=== PATIENT | male | born 1930 | race Caucasian/White ===

== ENCOUNTER 2017-01-05 07:49 | Outpatient (CLI) | payer MEDICARE, OTHER | END 2017-01-05 07:50 | disposition home or self-care (01) | DX: I25.10 Atherosclerotic heart disease of native coronary artery without angina pectoris (principal); D53.9 Nutritional anemia, unspecified; E78.5 Hyperlipidemia, unspecified; I10 Essential (primary) hypertension ==

== ENCOUNTER 2017-10-14 10:24 | Emergency (ER) | payer MEDICARE, OTHER ==
[2017-10-14 11:04] LABS: BASOPHILS # (AUTO) 0.1 10^3/uL (0.0-0.1); BASOPHILS % (AUTO) 0.7 %; EOSINOPHILS # (AUTO) 0.2 10^3/uL (0.0-0.7); EOSINOPHILS % (AUTO) 2.1 %; HGB - HEMOGLOBIN 13.7 g/dL (14.0-18.0); LYMPHOCYTES # (AUTO) 2.2 10^3/uL (1.5-3.5); LYMPHOCYTES % (AUTO) 19.6 %; MEAN CORPUSCULAR HEMOGLOBIN 30.8 pg (27.0-31.0); MEAN CORPUSCULAR HGB CONC 33.3 g/dL (32.0-36.0); MEAN CORPUSCULAR VOLUME 92.4 fL (80.0-94.0); MEAN PLATELET VOLUME 7.8 fL (7.4-11.4); MONOCYTES % (AUTO) 8.8 %; NEUTROPHILS # (AUTO) 7.8 10^3/uL (1.5-6.6); NEUTROPHILS % (AUTO) 68.8 %; PLT - PLATELET COUNT 330 10^3/uL (130-450); RED BLOOD COUNT 4.44 10^6/uL (4.70-6.10); RED CELL DISTRIBUTION WIDTH 13.7 % (12.0-15.0); WHITE BLOOD COUNT 11.3 x10^3/uL (4.8-10.8)
--- NOTE | 2017-10-14 11:10 | ED Physician Documentation ---
PD HPI CHEST PAIN - Stated complaint Stated Complaint: RAPID HEART RATE - Chief complaint Chief Complaint: Cardiac - History obtained from History obtained from: Patient - History of Present Illness Timing - onset: How many hours ago (5-6), Today Timing - onset during: Light activity Timing - duration: Hours (5-6) Timing - details: Abrupt onset, Now resolved (resolved just here in ER after ECG.) Quality: Tightness Location: Left chest Radiation: No: Jaw, Neck Improved by: Rest Associated symptoms: Palpitations. No: Shortness of air, Feeling faint / dizzy Similar symptoms before: Diagnosis (has had episodes of fast heart rate several times that has ceased/converted with time, usually within 1-2 hours. He waited 6 hours today and still felt fast/irregular, so came to ED.) Review of Systems Constitutional: denies: Fever, Chills Nose: denies: Rhinorrhea / runny nose, Congestion Throat: denies: Sore throat Cardiac: reports: Chest pain / pressure, Palpitations. denies: Pedal edema, Calf pain Respiratory: denies: Cough, Wheezing GI: denies: Abdominal Pain, Nausea, Vomiting, Diarrhea Musculoskeletal: denies: Extremity swelling Neurologic: reports: Generalized weakness. denies: Focal weakness, Numbness, Near syncope Endocrine: denies: Weight loss Immunocompromised: denies: Immunocompromised PD PAST MEDICAL HISTORY - Past Medical History Cardiovascular: Hypertension, High cholesterol Respiratory: None Endocrine/Autoimmune: None GI: None : Chronic bladder infection HEENT: Chronic vision loss, Chronic hearing loss Psych: None Musculoskeletal: Osteoarthritis, Other Derm: None - Past Surgical History Past Surgical History: Yes Ortho: Amputation, Other Cardiovascular: Coronary stent HEENT: Cataracts Derm: Skin cancer surgery - Present Medications Home Medications: Ambulatory Orders Medication Instructions Recorded Confirmed Lisinopril 20 mg PO DAILY 01/22/16 10/14/17 Simvastatin 20 mg PO QPM 01/22/16 10/14/17 amLODIPine [Norvasc] 10 mg DAILY 03/02/16 10/14/17 Atenolol/Chlorthalidone 100 mg PO DAILY 10/14/17 10/14/17 [Atenolol-Chlorthalidone 100-25] Metoprolol Succinate 25 mg PO DAILY 10/14/17 10/14/17 diazePAM [Diazepam] 5 mg PO DAILY 10/14/17 10/14/17 hydroCHLOROthiazide 25 mg pe PO DAILY PM 10/14/17 10/14/17 [Hydrochlorothiazide] traMADol [Ultram] 50 mg PO DAILY 10/14/17 10/14/17 - Allergies Allergies/Adverse Reactions: Allergies Allergy/AdvReac Type Severity Reaction Status Date / Time No Known Drug Allergies Allergy Verified 01/22/16 05:34 - Social History Does the pt smoke?: No Smoking Status: Never smoker Does the pt drink ETOH?: Yes Does the pt have substance abuse?: No - Immunizations Immunizations are current?: Yes PD ED PE NORMAL - Vitals Vital signs reviewed: Yes - General General: Alert and oriented X 3, No acute distress, Well developed/nourished - HEENT HEENT: Pharynx benign - Neck Neck: Supple, no meningeal sign, No adenopathy, No JVD - Cardiac Cardiac: RRR (seems converted to NSR by time I got into the room.), No murmur - Respiratory Respiratory: Clear bilaterally - Abdomen Abdomen: Normal bowel sounds, Soft, Non tender, Non distended, No organomegaly - Male Male : Deferred - Rectal Rectal: Deferred - Back Back: No CVA TTP - Derm Derm: Normal color, Warm and dry - Extremities Extremities: Normal ROM s pain, No edema, No calf tenderness / cord - Neuro Neuro: Alert and oriented X 3, No motor deficit, Normal speech Results - Vitals Vitals: Vital Signs - 24 hr 10/14/17 10/14/17 10/14/17 10:36 11:53 12:42 Temperature 36.6 C 36.6 C 36.9 C Heart Rate 139 H 82 68 Respiratory 14 14 19 Rate Blood Pressure 107/84 H 118/72 115/74 O2 Saturation 99 98 97 Oxygen O2 Source Room air - EKG (time done) 10:43 Rate: Rate (enter#) (137) Rhythm: Atrial fibrillation [place]: Normal Ischemia: Non specific changes. No: ST elevation c/w ischemia, ST depression 12:07 Rate: Rate (enter#) (65) Rhythm: NSR [place]: Normal Intervals: Normal [place] QRS: Normal Ischemia: Normal ST segments. No: ST elevation c/w ischemia, ST elevation c/w repol Compare to prior EKG: Changed from prior EKG (now NSR) - Labs Labs: Laboratory Tests 10/14/17 10/14/17 10/14/17 10:45 10:45 10:45 WBC 11.3 H RBC 4.44 L Hgb 13.7 L Hct 41.0 L MCV 92.4 MCH 30.8 MCHC 33.3 RDW 13.7 Plt Count 330 MPV 7.8 Neut # 7.8 H Lymph # 2.2 [place] # 1.0 Eos # 0.2 Baso # 0.1 Absolute Nucleated RBC 0.00 Nucleated RBC % 0.0 Sodium 143 Potassium 4.3 Chloride 105 Carbon Dioxide 21 Anion Gap 17.0 H BUN 19 Creatinine 1.0 Estimated GFR (MDRD) 71 L Glucose 108 H Calcium 9.7 Magnesium Total Bilirubin 0.5 AST 19 ALT 15 Alkaline Phosphatase 76 Troponin I < 0.04 Total Protein 6.8 Albumin 4.0 Globulin 2.8 Albumin/Globulin Ratio 1.4 Lipase 46 10/14/17 10:50 WBC RBC Hgb Hct MCV MCH MCHC RDW Plt Count MPV Neut # Lymph # [place] # Eos # Baso # Absolute Nucleated RBC Nucleated RBC % Sodium Potassium Chloride Carbon Dioxide Anion Gap BUN Creatinine Estimated GFR (MDRD) Glucose Calcium Magnesium 2.2 Total Bilirubin AST ALT Alkaline Phosphatase Troponin I Total Protein Albumin Globulin Albumin/Globulin Ratio Lipase PD MEDICAL DECISION MAKING - ED course Complexity details: reviewed results, re-evaluated patient, considered differential (junctional tach vs. atrial fib 137. It converted without intervention here in ED. ), d/w patient Departure - Departure Disposition: Home, Self Care Clinical Impression: Paroxysmal atrial fibrillation Condition: Stable Record reviewed to determine appropriate education?: Yes Instructions: ED Afib Follow-Up: Leonardo Painting MD [Primary Care Provider] - Comments: Increase your Metoprolol from the current 1/2 tablet daily to a whole tablet daily (25 mg). Check your heart rate and blood pressure twice daily for the next week. If your heart rate is consistently in the 50s or you are feeling lightheaded with lower heart rate, then go back to the 1/2 tablet. If your heart rate is okay but your blood pressure is consistently below 120 systolic, then stay with the metoprolol but stop the Lisinopril. Follow up with your PMD in about a week, call Monday for an appt. For further episodes of the fast heart rate (which looks like atrial fib), see if it stops after a few hours like you have been doing and return to us if it persists. Come to ER sooner if it is associated with chest pain, lightheaded, fainting, trouble breathing, etc. Take a baby aspirin 81 mg daily. Discharge Date/Time: 10/14/17 13:32
[2017-10-14 11:17] LABS: ALBUMIN/GLOBULIN RATIO 1.4 (1.0-2.2); BILIRUBIN,TOTAL 0.5 mg/dL (0.2-1.0); CALCIUM 9.7 mg/dL (8.5-10.3); TOTAL PROTEIN 6.8 g/dL (6.7-8.2)
[2017-10-14] MEDS ORDERED: SODIUM CHLORIDE 0.9% 500 ML IV ONE (11:41)
[2017-10-14] MEDS ORDERED: METOPROLOL 5 MG/5 ML VIAL IVP STA (11:41)
[2017-10-14 12:43] VITALS: BP 115/74
== END 2017-10-14 13:32 | disposition home or self-care (01) ==
LOC: ED 10:24
DX: I48.0 Paroxysmal atrial fibrillation (principal); I10 Essential (primary) hypertension; E78.00 Pure hypercholesterolemia, unspecified; M19.90 Unspecified osteoarthritis, unspecified site
CPT/HCPCS: 36415; 80053; 83690; 83735; 84484; 85025; 93005; 96361; 96374; 99283; 99284

== ENCOUNTER 2018-05-07 08:00 | Outpatient (CLI) | payer MEDICARE, OTHER ==
[2018-05-07 12:06] LABS: BASOPHILS # (AUTO) 0.1 10^3/uL (0.0-0.1); BASOPHILS % (AUTO) 0.7 %; EOSINOPHILS # (AUTO) 0.2 10^3/uL (0.0-0.7); EOSINOPHILS % (AUTO) 2.8 %; HGB - HEMOGLOBIN 13.2 g/dL (14.0-18.0); LYMPHOCYTES # (AUTO) 1.6 10^3/uL (1.5-3.5); LYMPHOCYTES % (AUTO) 18.7 %; MEAN CORPUSCULAR HEMOGLOBIN 31.4 pg (27.0-31.0); MEAN CORPUSCULAR HGB CONC 33.6 g/dL (32.0-36.0); MEAN CORPUSCULAR VOLUME 93.3 fL (80.0-94.0); MEAN PLATELET VOLUME 8.2 fL (7.4-11.4); MONOCYTES # (AUTO) 0.6 10^3/uL (0.0-1.0); MONOCYTES % (AUTO) 7.5 %; NEUTROPHILS % (AUTO) 70.3 %; PLT - PLATELET COUNT 333 10^3/uL (130-450); RED CELL DISTRIBUTION WIDTH 13.8 % (12.0-15.0); WHITE BLOOD COUNT 8.5 x10^3/uL (4.8-10.8)
[2018-05-07 12:24] LABS: ALBUMIN 3.6 g/dL (3.2-5.5); ALBUMIN/GLOBULIN RATIO 1.1 (1.0-2.2); ALKALINE PHOSPHATASE 74 IU/L (42-121); ALT ALANINE AMINOTRANSFERASE 15 IU/L (10-60); AST ASPARTATE AMINOTRANSFERASE 19 IU/L (10-42); BILIRUBIN,TOTAL 0.9 mg/dL (0.2-1.0); BUN - BLOOD UREA NITROGEN 22 mg/dL (6-20); CALCIUM 9.1 mg/dL (8.5-10.3); CARBON DIOXIDE - CO2 29 mmol/L (21-32); CHLORIDE 106 mmol/L (101-111); CHOL/HDL RATIO 4.1 (<5.0); CHOLESTEROL 171 mg/dL; CREATININE 1.1 mg/dL (0.6-1.2); GFR - MDRD 64 (>89); GLUCOSE 107 mg/dL (70-100); HDL CHOLESTEROL 42 mg/dL; LDL CHOLESTEROL,CALCULATED 97 mg/dL; LDL/HDL RATIO 2.3 (<3.6); SODIUM 140 mmol/L (135-145); TOTAL PROTEIN 6.8 g/dL (6.7-8.2); VLDL CHOLESTEROL 32 mg/dL
== END 2018-05-07 08:01 | disposition home or self-care (01) ==
LOC: LAB.S 08:00
PROVIDERS: ATTEND Nurse Practitioner Family
DX: I10 Essential (primary) hypertension (principal); E78.5 Hyperlipidemia, unspecified
CPT/HCPCS: 36415; 80053; 80061; 83721; 84443; 85025

== ENCOUNTER 2018-06-16 02:53 | Emergency (ER) | payer MEDICARE, OTHER ==
--- NOTE | 2018-06-16 03:09 | ED Physician Documentation ---
PD HPI CHEST PAIN - Stated complaint Stated Complaint: CHEST PAIN - Chief complaint Chief Complaint: Cardiac - History obtained from History obtained from: Patient - History of Present Illness Timing - onset: How many hours ago (3) Timing - onset during: Rest Timing - details: Gradual onset, Still present Location: Substernal, Left chest Improved by: Nitro Similar symptoms before: Work up / diagnostics Recently seen: Not recently seen - Additional information Additional information: Patient is a 88 year old male with a history of prior mi in 2000 who is presenting to the emergency department for left sided chest pain. patient states that he woke up tonight with pain in his amputated leg. patient states that he took ibuprofen for it and the leg pain went away but the patient developed left sided chest pain. patient took three nitros but the pain persisted so he came to the emergency department. Review of Systems Ten Systems: 10 systems reviewed and negative Constitutional: denies: Fever, Chills Cardiac: reports: Chest pain / pressure. denies: Palpitations Respiratory: denies: Dyspnea, Cough, Wheezing GI: denies: Nausea, Vomiting PD PAST MEDICAL HISTORY - Past Medical History Cardiovascular: Hypertension, High cholesterol Respiratory: None Endocrine/Autoimmune: None GI: None : Chronic bladder infection HEENT: Chronic vision loss, Chronic hearing loss Psych: None Musculoskeletal: Osteoarthritis, Other Derm: None - Past Surgical History Past Surgical History: Yes Ortho: Amputation, Other Cardiovascular: Coronary stent HEENT: Cataracts Derm: Skin cancer surgery - Present Medications Home Medications: Ambulatory Orders Medication Instructions Recorded Confirmed Lisinopril 20 mg PO DAILY 01/22/16 10/14/17 Simvastatin 20 mg PO QPM 01/22/16 10/14/17 amLODIPine [Norvasc] 10 mg DAILY 03/02/16 10/14/17 Atenolol/Chlorthalidone 100 mg PO DAILY 10/14/17 10/14/17 [Atenolol-Chlorthalidone 100-25] Metoprolol Succinate 25 mg PO DAILY 10/14/17 10/14/17 diazePAM [Diazepam] 5 mg PO DAILY 10/14/17 10/14/17 hydroCHLOROthiazide 25 mg pe PO DAILY PM 10/14/17 10/14/17 [Hydrochlorothiazide] traMADol [Ultram] 50 mg PO DAILY 10/14/17 10/14/17 - Allergies Allergies/Adverse Reactions: Allergies Allergy/AdvReac Type Severity Reaction Status Date / Time No Known Drug Allergies Allergy Verified 06/16/18 03:09 - Social History Does the pt smoke?: No Smoking Status: Never smoker Does the pt drink ETOH?: Yes Does the pt have substance abuse?: No - Immunizations Immunizations are current?: Yes PD ED PE NORMAL - Vitals Vital signs reviewed: Yes - General General: Alert and oriented X 3 - HEENT HEENT: Atraumatic, PERRL - Neck Neck: Supple, no meningeal sign, No JVD - Cardiac Cardiac: RRR - Respiratory Respiratory: No respiratory distress - Abdomen Abdomen: Soft PD ED PE EXPANDED - Extremities Extremities: Right leg (right leg amputation) Results - Vitals Vitals: Vital Signs - 24 hr 06/16/18 06/16/18 03:04 03:18 Temperature 36.5 C Heart Rate 63 Respiratory 18 17 Rate Blood Pressure 106/58 L 100/69 O2 Saturation 97 Oxygen O2 Source Room air - EKG (time done) 0304 Rate: Rate (enter#) (58) Rhythm: Sinus bradycardia Ischemia: ST elevation c/w ischemia, ST depression PD MEDICAL DECISION MAKING - ED course Complexity details: reviewed old records, reviewed results, re-evaluated patient, considered differential, d/w patient, d/w dairy nutrition consultant ED course: Patient was seen and examined at bedside. ekg was performed at 03:04 and showed inferior, posterior DC. Code STEMI was called. patient was treated with aspirin, heparin bolus and heparin drip was started. patient was given a 500ml fluid bolus. Case was discussed with Dr. Read at [facility] who accepted the patient. patient was transferred at 03:25. - Sepsis Event Vital Signs: Vital Signs - 24 hr 06/16/18 06/16/18 03:04 03:18 Temperature 36.5 C Heart Rate 63 Respiratory 18 17 Rate Blood Pressure 106/58 L 100/69 O2 Saturation 97 Oxygen O2 Source Room air Departure - Departure Disposition: 02 Transfer Acute Care Hosp Clinical Impression: ST elevation (STEMI) myocardial infarction Condition: Critical
[2018-06-16] MEDS ORDERED: ASPIRIN CHEW 81 MG TABLET PO STA (03:10)
[2018-06-16] MEDS ORDERED: HEPARIN 5,000 UNIT/ML VIAL IVP STA (03:10)
[2018-06-16] MEDS ORDERED: HEPARIN 25000UNITS/500ML (D5W) 25,000 UNIT/500 ML BAG IV STA (03:10)
[2018-06-16] MEDS ORDERED: HEPARIN 5,000 UNIT/ML VIAL ONE (03:12)
[2018-06-16] MEDS ORDERED: ASPIRIN CHEW 81 MG TABLET ONE (03:13)
[2018-06-16] MEDS ORDERED: HEPARIN 25000UNITS/500ML (D5W) 25,000 UNIT/500 ML BAG IV ONE (03:13)
[2018-06-16 03:22] VITALS: BP 100/69
[2018-06-16 03:23] LABS: BASOPHILS % (AUTO) 0.3 %; EOSINOPHILS % (AUTO) 0.3 %; HGB - HEMOGLOBIN 12.6 g/dL (14.0-18.0); LYMPHOCYTES # (AUTO) 0.4 10^3/uL (1.5-3.5); LYMPHOCYTES % (AUTO) 2.7 %; MEAN CORPUSCULAR HEMOGLOBIN 31.2 pg (27.0-31.0); MEAN CORPUSCULAR HGB CONC 33.3 g/dL (32.0-36.0); MEAN CORPUSCULAR VOLUME 93.7 fL (80.0-94.0); MEAN PLATELET VOLUME 7.6 fL (7.4-11.4); MONOCYTES # (AUTO) 0.1 10^3/uL (0.0-1.0); MONOCYTES % (AUTO) 0.8 %; NEUTROPHILS # (AUTO) 15.1 10^3/uL (1.5-6.6); NEUTROPHILS % (AUTO) 95.9 %; PLT - PLATELET COUNT 291 10^3/uL (130-450); RED BLOOD COUNT 4.04 10^6/uL (4.70-6.10); RED CELL DISTRIBUTION WIDTH 13.5 % (12.0-15.0); WHITE BLOOD COUNT 15.7 x10^3/uL (4.8-10.8)
[2018-06-16 03:29] LABS: PT - PROTHROMBIN TIME 11.5 secs (9.9-12.6)
[2018-06-16 03:39] LABS: ALBUMIN 3.8 g/dL (3.2-5.5); ALBUMIN/GLOBULIN RATIO 1.4 (1.0-2.2); BILIRUBIN,TOTAL 1.1 mg/dL (0.2-1.0); CALCIUM 9.3 mg/dL (8.5-10.3); CREATININE 1.3 mg/dL (0.6-1.2); TOTAL PROTEIN 6.5 g/dL (6.7-8.2)
== END 2018-06-16 03:22 | disposition short-term general hospital (02) ==
LOC: ED 02:53
DX: I21.3 ST elevation (STEMI) myocardial infarction of unspecified site (principal); I45.81 Long QT syndrome; I10 Essential (primary) hypertension; E78.00 Pure hypercholesterolemia, unspecified; Z95.5 Presence of coronary angioplasty implant and graft
CPT/HCPCS: 36415; 80053; 83690; 83880; 84484; 85025; 85610; 85730; 93005; 96374; 99283; A9270; 99284

== ENCOUNTER 2018-06-16 03:30 | Outpatient (CLI) | payer MEDICARE, OTHER | END 2018-06-16 03:31 | disposition short-term general hospital (02) | LOC: EMS 03:30 | PROVIDERS: ATTEND Surgery | DX: R07.9 Chest pain, unspecified (principal); R11.0 Nausea | CPT/HCPCS: A0425; A0427 ==

== ENCOUNTER 2018-06-27 19:40 | Emergency (ER) | payer MEDICARE, OTHER ==
[2018-06-27 19:52] VITALS: BP 145/76
[2018-06-27] MEDS ORDERED: predniSONE 20 MG TABLET PO STA (20:01)
--- NOTE | 2018-06-27 20:04 | ED Physician Documentation ---
History of Present Illness - Stated complaint Stated Complaint: ALLERGIC REACTION/HIVES/SWELLING - Chief complaint Chief Complaint: Allergic Rx - History obtained from History obtained from: Patient, Family - History of Present Illness Timing: How many days ago (2) Pain level max: 0 Pain level now: 0 Improved by: nothing Worsened by: nothing - Additonal information Additional information: Patient is an 88-year-old male who is 10 days status post an acute NE with stent placement. Over the past couple days has noticed urticaria to the left lower extremity spread into the left arm today. His only new medication is Plavix and baclofen. Is not having any dyspnea, chest pain. No wheezing. No stridor. Saw his bioengineer 3 days ago and his primary care provider earlier today. He also states that he is having increased itching in the hands. Does have a history of eczema/psoriasis. Review of Systems Ten Systems: 10 systems reviewed and negative Constitutional: denies: Fever, Chills Nose: denies: Rhinorrhea / runny nose Throat: denies: Sore throat Cardiac: denies: Chest pain / pressure, Palpitations Respiratory: denies: Cough, Hemoptysis GI: denies: Abdominal Pain, Nausea, Vomiting, Diarrhea Musculoskeletal: denies: Neck pain, Back pain Neurologic: denies: Headache PD PAST MEDICAL HISTORY - Past Medical History Past Medical History: Yes Cardiovascular: Hypertension, High cholesterol, [place] Respiratory: None Endocrine/Autoimmune: None GI: None : Chronic bladder infection HEENT: Chronic vision loss, Chronic hearing loss Psych: None Musculoskeletal: Osteoarthritis, Other Derm: None, Eczema, Psoriasis - Past Surgical History Past Surgical History: Yes Ortho: Amputation, Other Cardiovascular: Coronary stent, Cardiac catheterization HEENT: Cataracts Derm: Skin cancer surgery - Present Medications Home Medications: Ambulatory Orders Medication Instructions Recorded Confirmed Lisinopril 2.5 mg PO DAILY 01/22/16 06/16/18 amLODIPine [Norvasc] 5 mg PO DAILY 03/02/16 06/16/18 Metoprolol Succinate 50 mg PO BID 10/14/17 06/16/18 diazePAM [Diazepam] 5 mg PO DAILY 10/14/17 06/16/18 hydroCHLOROthiazide 12.5 mg PO DAILY 10/14/17 06/16/18 [Hydrochlorothiazide] traMADol [Ultram] 50 mg PO Q6HR PRN 10/14/17 06/16/18 Aspirin 81 mg PO 06/27/18 Atorvastatin [Lipitor] 80 mg PO DAILY 06/27/18 06/27/18 Baclofen 06/27/18 06/27/18 Clopidogrel [Plavix] 75 mg PO DAILY 06/27/18 06/27/18 Gabapentin [Neurontin] 100 mg PO 06/27/18 diazePAM [Diazepam] 5 mg PO PRN 06/27/18 predniSONE [Deltasone] 10 mg PO [id number] #42 tab 06/27/18 - Allergies Allergies/Adverse Reactions: Allergies Allergy/AdvReac Type Severity Reaction Status Date / Time No Known Drug Allergies Allergy Verified 06/16/18 03:09 - Social History Does the pt smoke?: No Smoking Status: Never smoker Does the pt drink ETOH?: Yes Does the pt have substance abuse?: No - Immunizations Immunizations are current?: Yes - POLST Patient has POLST: No PD ED PE NORMAL - Vitals Vital signs reviewed: Yes - General General: Alert and oriented X 3, No acute distress - Derm Derm: Warm and dry - Extremities Extremities: Other (urticaria to the posterior aspect of the L leg and inner L upper arm. Slight urticaria to the upper abdomen as well. 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 Unclear etiology. No wheezing or stridor. Lungs are clear to auscultation bilaterally. Will place on steroids and have him follow-up closely with his doctor. Has no chest pain or shortness of breath to suggest recurrent acute coronary syndrome. Patient and family counseled regarding signs and symptoms for which I believe and urgent re- evaluation would be necessary. Patient with good understanding of and agreement to plan and is comfortable going home at this time This document was made in part using voice recognition software. While efforts are made to proofread this document, sound alike and grammatical errors may occur. - Sepsis Event Vital Signs: Vital Signs - 24 hr 06/27/18 19:46 Temperature 36.6 C Heart Rate 96 Respiratory 18 Rate Blood Pressure 145/76 H O2 Saturation 94 Oxygen O2 Source Room air Departure - Departure Disposition: 01 Home, Self Care Clinical Impression: Urticaria Condition: Good Instructions: ED Allergic Reaction General Other Follow-Up: Johanna Han ARNP [Primary Care Provider] - Within 1 week Prescriptions: predniSONE [Deltasone] 10 mg PO [id number] #42 tab Comments: Take the prednisone as directed until gone. Return if you worsen. The etiology of your allergic reaction is unclear
== END 2018-06-27 20:11 | disposition home or self-care (01) ==
LOC: ED 19:40
DX: L50.9 Urticaria, unspecified (principal); I25.2 Old myocardial infarction; I10 Essential (primary) hypertension; E78.00 Pure hypercholesterolemia, unspecified; Z95.5 Presence of coronary angioplasty implant and graft
CPT/HCPCS: 99283; J7512

== ENCOUNTER 2018-08-06 08:21 | Outpatient (CLI) | payer MEDICARE, OTHER ==
[2018-08-06 11:33] LABS: ALKALINE PHOSPHATASE 112 IU/L (42-121); ALT ALANINE AMINOTRANSFERASE 19 IU/L (10-60); AST ASPARTATE AMINOTRANSFERASE 20 IU/L (10-42); BILIRUBIN,TOTAL 0.6 mg/dL (0.2-1.0); CHOLESTEROL 95 mg/dL; HDL CHOLESTEROL 32 mg/dL; LDL CHOLESTEROL,CALCULATED 42 mg/dL; LDL/HDL RATIO 1.3 (<3.6); TOTAL PROTEIN 6.6 g/dL (6.7-8.2); VLDL CHOLESTEROL 21 mg/dL
[2018-08-06 11:48] LABS: BILIRUBIN,DIRECT < 0.1 mg/dL (0.1-0.5)
== END 2018-08-06 08:22 | disposition home or self-care (01) ==
LOC: LAB.F 08:21
PROVIDERS: ATTEND Nurse Practitioner Family
DX: I21.3 ST elevation (STEMI) myocardial infarction of unspecified site (principal)
CPT/HCPCS: 36415; 80061; 80076; 83721

== ENCOUNTER 2019-02-07 08:00 | Outpatient (CLI) | payer MEDICARE, OTHER ==
[2019-02-07 17:57] LABS: MUDS CUTOFF CONCENTRATIONS CUTOFF CONC BELOW:
[2019-02-07 18:45] LABS: AMPHETAMINE SCREEN,URINE NEGATIVE (NEGATIVE); BENZODIAZEPINES SCREEN, URINE NEGATIVE (NEGATIVE); COCAINE SCREEN URINE NEGATIVE (NEGATIVE); METHADONE SCREEN, URINE NEGATIVE (NEGATIVE); METHAMPHETAMINES SCREEN, URINE NEGATIVE (NEGATIVE); OPIATE SCREEN, URINE NEGATIVE (NEGATIVE); OXYCODONE SCREEN, URINE NEGATIVE (NEGATIVE); PROPOXYPHENE SCREEN, URINE NEGATIVE (NEGATIVE); TRICYCLIC ANTIDEPRESSANT,URINE NEGATIVE (NEGATIVE)
== END 2019-02-07 23:59 | disposition home or self-care (01) ==
LOC: LAB.R 08:00
PROVIDERS: ATTEND Nurse Practitioner Family
DX: M25.511 Pain in right shoulder (principal); Z89.611 Acquired absence of right leg above knee
CPT/HCPCS: 80306

== ENCOUNTER 2019-08-12 08:06 | Outpatient (CLI) | payer MEDICARE, OTHER ==
[2019-08-12 10:15] LABS: BASOPHILS # (AUTO) 0.1 10^3/uL (0.0-0.1); BASOPHILS % (AUTO) 0.9 %; EOSINOPHILS # (AUTO) 0.3 10^3/uL (0.0-0.7); EOSINOPHILS % (AUTO) 4.5 %; HGB - HEMOGLOBIN 12.1 g/dL (14.0-18.0); LYMPHOCYTES # (AUTO) 1.5 10^3/uL (1.5-3.5); LYMPHOCYTES % (AUTO) 26.4 %; MEAN CORPUSCULAR HEMOGLOBIN 30.6 pg (27.0-31.0); MEAN CORPUSCULAR HGB CONC 31.5 g/dL (32.0-36.0); MEAN PLATELET VOLUME 10.4 fL (7.4-11.4); MONOCYTES # (AUTO) 0.6 10^3/uL (0.0-1.0); MONOCYTES % (AUTO) 10.1 %; NEUTROPHILS # (AUTO) 3.2 10^3/uL (1.5-6.6); NEUTROPHILS % (AUTO) 57.6 %; PLT - PLATELET COUNT 239 10^3/uL (130-450); RED BLOOD COUNT 3.96 10^6/uL (4.70-6.10); RED CELL DISTRIBUTION WIDTH 13.8 % (12.0-15.0); WHITE BLOOD COUNT 5.6 x10^3/uL (4.8-10.8)
[2019-08-12 10:36] LABS: ALBUMIN 3.8 g/dL (3.2-5.5); ALBUMIN/GLOBULIN RATIO 1.5 (1.0-2.2); ALKALINE PHOSPHATASE 80 IU/L (42-121); ALT ALANINE AMINOTRANSFERASE 19 IU/L (10-60); AST ASPARTATE AMINOTRANSFERASE 17 IU/L (10-42); BILIRUBIN,TOTAL 0.8 mg/dL (0.2-1.0); BUN - BLOOD UREA NITROGEN 22 mg/dL (6-20); CALCIUM 9.2 mg/dL (8.5-10.3); CARBON DIOXIDE - CO2 31 mmol/L (21-32); CHLORIDE 105 mmol/L (101-111); CHOL/HDL RATIO 2.6 (<5.0); CHOLESTEROL 111 mg/dL; GFR - MDRD 71 (>89); GLUCOSE 105 mg/dL (70-100); HDL CHOLESTEROL 42 mg/dL; LDL CHOLESTEROL,CALCULATED 53 mg/dL; LDL/HDL RATIO 1.3 (<3.6); SODIUM 142 mmol/L (135-145); TOTAL PROTEIN 6.4 g/dL (6.7-8.2); VLDL CHOLESTEROL 16 mg/dL
== END 2019-08-12 08:07 | disposition home or self-care (01) ==
LOC: LAB.S 08:06
PROVIDERS: ATTEND Physician Assistant Medical
DX: I10 Essential (primary) hypertension (principal); E78.5 Hyperlipidemia, unspecified
CPT/HCPCS: 36415; 80053; 80061; 83721; 85025

== ENCOUNTER 2020-05-27 16:27 | Emergency (ER) | payer MEDICARE, OTHER ==
[2020-05-27 16:39] VITALS: BP 125/73
[2020-05-27 17:02] LABS: BASOPHILS % (AUTO) 0.5 %; EOSINOPHILS # (AUTO) 0.3 10^3/uL (0.0-0.7); EOSINOPHILS % (AUTO) 3.3 %; HGB - HEMOGLOBIN 12.3 g/dL (14.0-18.0); LYMPHOCYTES # (AUTO) 1.8 10^3/uL (1.5-3.5); LYMPHOCYTES % (AUTO) 23.5 %; MEAN CORPUSCULAR HEMOGLOBIN 31.1 pg (27.0-31.0); MEAN CORPUSCULAR HGB CONC 31.9 g/dL (32.0-36.0); MEAN CORPUSCULAR VOLUME 97.5 fL (80.0-94.0); MEAN PLATELET VOLUME 9.5 fL (7.4-11.4); MONOCYTES # (AUTO) 0.8 10^3/uL (0.0-1.0); MONOCYTES % (AUTO) 10.1 %; NEUTROPHILS # (AUTO) 4.7 10^3/uL (1.5-6.6); NEUTROPHILS % (AUTO) 62.1 %; PLT - PLATELET COUNT 275 10^3/uL (130-450); RED BLOOD COUNT 3.96 10^6/uL (4.70-6.10); RED CELL DISTRIBUTION WIDTH 13.5 % (12.0-15.0); WHITE BLOOD COUNT 7.6 x10^3/uL (4.8-10.8)
[2020-05-27 17:17] LABS: ALBUMIN 3.8 g/dL (3.2-5.5); ALBUMIN/GLOBULIN RATIO 1.5 (1.0-2.2); BILIRUBIN,TOTAL 0.6 mg/dL (0.2-1.0); CALCIUM 8.7 mg/dL (8.5-10.3); CREATININE 0.8 mg/dL (0.6-1.2); TOTAL PROTEIN 6.3 g/dL (6.7-8.2)
--- NOTE | 2020-05-27 17:21 | XRAY Report ---
PROCEDURE: Chest 1 View X-Ray INDICATIONS: Chest pain TECHNIQUE: One view of the chest was acquired. COMPARISON: Chest radiographs dated 03/21/2016 FINDINGS: Surgical changes and devices: None. Lungs and pleura: Mild elevation of the left hemidiaphragm appears stable when compared to the prior radiographs. No focal airspace consolidation is seen. There is no significant pleural effusion or pn eumothorax. Mediastinum: Mediastinal contours appear normal. Heart size is normal. At this chronic ossificatio ns are seen in the aorta. Bones and chest wall: No suspicious bony lesions. Overlying soft tissues appear unremarkable. 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 IMPRESSION: No acute cardiopulmonary abnormality. Stable elevation of the left hemidiaphragm. Reviewed by: Gregor Cesar MD on 05/27/2020 5:19 PM PDT Approved by: Gregor Cesar MD on 05/27/2020 5:19 PM PDT Station ID: [id number]
--- NOTE | 2020-05-27 17:23 | ED Physician Documentation ---
History of Present Illness - Stated complaint Stated Complaint: IRREGULAR HEART BEAT - Chief complaint Chief Complaint: Cardiac - Additonal information Additional information: 89-year-old male presents to the emergency department for evaluation of what he feels are missing or skipped beats in his chest. This has been occurring with increasing frequency over the last several weeks. However it was more sustained today. He has not had any fainting episodes. He denies chest pain or shortness of breath with these sensations. no syncope or c/o feeling dizzy or lightheaded. He has had no nausea vomiting or complaints of abdominal pain. He does have a significant cardiovascular history with multiple previous MIs and [address] Past medical history includes hypertension coronary artery disease. Meds: lisinopril, amlodipine, aspirin, Plavix, metoprolol, gabapentin, statin, baclofen Review of Systems Constitutional: denies: Fever, Chills Throat: denies: Oral lesions / sores, Sore throat Cardiac: reports: Palpitations. denies: Chest pain / pressure, Pedal edema, Calf pain Respiratory: denies: Dyspnea, Cough, Hemoptysis, Wheezing GI: denies: Abdominal Pain, Abdominal Swelling, Nausea, Vomiting : denies: Dysuria, Frequency Skin: denies: Rash, Lesions Musculoskeletal: denies: Neck pain, Back pain Neurologic: denies: Generalized weakness, Focal weakness, Numbness, Difficulty speaking, Syncope, Seizure, Confused, Altered mental status, Headache PD PAST MEDICAL HISTORY - Past Medical History Cardiovascular: Hypertension, High cholesterol, [place] Respiratory: None Endocrine/Autoimmune: None GI: None : Chronic bladder infection HEENT: Chronic vision loss, Chronic hearing loss Psych: None Musculoskeletal: Osteoarthritis, Other Derm: None, Eczema, Psoriasis - Past Surgical History Past Surgical History: Yes Ortho: Amputation, Other Cardiovascular: Coronary stent, Cardiac catheterization HEENT: Cataracts Derm: Skin cancer surgery - Present Medications Home Medications: Ambulatory Orders Medication Instructions Recorded Confirmed Lisinopril 2.5 mg PO DAILY 01/22/16 06/16/18 amLODIPine [Norvasc] 5 mg PO DAILY 03/02/16 06/16/18 Metoprolol Succinate 50 mg PO BID 10/14/17 06/16/18 diazePAM [Diazepam] 5 mg PO DAILY 10/14/17 06/16/18 hydroCHLOROthiazide 12.5 mg PO DAILY 10/14/17 06/16/18 [Hydrochlorothiazide] traMADol [Ultram] 50 mg PO Q6HR PRN 10/14/17 06/16/18 Aspirin 81 mg PO 06/27/18 Atorvastatin [Lipitor] 80 mg PO DAILY 06/27/18 06/27/18 Baclofen 06/27/18 06/27/18 Clopidogrel [Plavix] 75 mg PO DAILY 06/27/18 06/27/18 Gabapentin [Neurontin] 100 mg PO 06/27/18 diazePAM [Diazepam] 5 mg PO PRN 06/27/18 predniSONE [Deltasone] 10 mg PO [id number] #42 tab 06/27/18 - Allergies Allergies/Adverse Reactions: Allergies Allergy/AdvReac Type Severity Reaction Status Date / Time No Known Drug Allergies Allergy Verified 05/27/20 16:38 - Social History Does the pt smoke?: No Smoking Status: Never smoker Does the pt drink ETOH?: Yes Does the pt have substance abuse?: No - Immunizations Immunizations are current?: Yes - POLST Patient has POLST: No PD ED PE NORMAL - General General: Alert and oriented X 3, No acute distress, Well developed/nourished - HEENT HEENT: PERRL - Neck Neck: Supple, no meningeal sign, No adenopathy - Cardiac Cardiac: RRR, Strong equal pulses. No: No murmur - Respiratory Respiratory: No respiratory distress, Clear bilaterally - Abdomen Abdomen: Normal bowel sounds, Soft - Derm Derm: Normal color, Warm and dry, No rash - Extremities Extremities: No deformity - Neuro Neuro: Alert and oriented X 3, commercial counsel 2-12 intact, No motor deficit, No sensory deficit Eye Opening: Spontaneous Motor: Obeys Commands Verbal: Oriented GCS Score: 15 Results - Vitals Vitals: Vital Signs - 24 hr 05/27/20 16:29 Temperature 36.8 C Heart Rate 71 Respiratory 18 Rate Blood Pressure 125/73 O2 Saturation 97 Oxygen O2 Source Room air - Labs Labs: Laboratory Tests 05/27/20 05/27/20 05/27/20 16:55 16:55 16:55 WBC 7.6 RBC 3.96 L Hgb 12.3 L Hct 38.6 L MCV 97.5 H MCH 31.1 H MCHC 31.9 L RDW 13.5 Plt Count 275 MPV 9.5 Neut # (Auto) 4.7 Lymph # (Auto) 1.8 [place] # (Auto) 0.8 Eos # (Auto) 0.3 Baso # (Auto) 0.0 Absolute Nucleated RBC 0.00 Nucleated RBC % 0.0 Sodium 140 Potassium 4.0 Chloride 106 Carbon Dioxide 28 Anion Gap 6.0 BUN 19 Creatinine 0.8 Estimated GFR (MDRD) 91 Glucose 106 H Calcium 8.7 Phosphorus Magnesium Total Bilirubin 0.6 AST 17 ALT 17 Alkaline Phosphatase 86 Troponin I High Sens 12.4 Total Protein 6.3 L Albumin 3.8 Globulin 2.5 Albumin/Globulin Ratio 1.5 Lipase 116 H 05/27/20 16:55 WBC RBC Hgb Hct MCV MCH MCHC RDW Plt Count MPV Neut # (Auto) Lymph # (Auto) [place] # (Auto) Eos # (Auto) Baso # (Auto) Absolute Nucleated RBC Nucleated RBC % Sodium Potassium Chloride Carbon Dioxide Anion Gap BUN Creatinine Estimated GFR (MDRD) Glucose Calcium Phosphorus 3.9 Magnesium 2.1 Total Bilirubin AST ALT Alkaline Phosphatase Troponin I High Sens Total Protein Albumin Globulin Albumin/Globulin Ratio Lipase PD MEDICAL DECISION MAKING - ED course Complexity details: reviewed results, considered differential, d/w patient ED course: 89-year-old male presents to the emergency department for evaluation of palpitations. He has a sensation that his heart is skipping a beat. On presentation and EKG he is noted to be in frequent runs of ventricular bigeminy. On review of this gentleman's labs he has an unremarkable chemistry including serum magnesium and phosphorus. His high-sensitivity troponin is not elevated. I have discussed the frequency of the PVCs with this patient and his . At this time they do have follow-up with his primary care provider tomorrow. In the past they have been instructed to take an extra dose of Metroprolol when experiencing a rapid heart rate I have advised it is okay to take for the skipped beats as well. In addition to this he does have a follow-up appointment with cardiology pending. I have advised the patient to return to the emergency department for any fainting episodes, chest pain shortness of breath. Departure - Departure Disposition: 01 Home, Self Care Clinical Impression: PVC (premature ventricular contraction) Condition: Stable Record reviewed to determine appropriate education?: Yes Instructions: Premature Ventricular Contract About, Premature Ventricular Contract Tx Comments: Brennon when you see your primary care doctor tomorrow please discuss this emergency department visit. In the short-term it is okay to take an extra dose or 2 of your metoprolol if you are feeling that you are skipping beats too frequently. I also advised that you continue close follow-up with your television agent. If you develop chest pain have any fainting episodes or feel short of breath please return immediately to the emergency department
[2020-05-27 17:31] LABS: MAGNESIUM 2.1 mg/dL (1.7-2.8); PHOSPHORUS 3.9 mg/dL (2.5-4.6)
== END 2020-05-27 18:00 | disposition home or self-care (01) ==
LOC: ED 16:27
DX: I49.3 Ventricular premature depolarization (principal)
CPT/HCPCS: 36415; 71045; 80053; 83690; 83735; 84100; 84484; 85025; 93005; 99284

== ENCOUNTER 2020-08-06 08:48 | Outpatient (CLI) | payer MEDICARE, OTHER | END 2020-08-06 08:49 | disposition home or self-care (01) | LOC: DI 08:48 | PROVIDERS: ATTEND Internal Medicine Cardiovascular Disease | DX: I49.3 Ventricular premature depolarization (principal); I08.0 Rheumatic disorders of both mitral and aortic valves | CPT/HCPCS: 93306 ==

== ENCOUNTER 2021-05-24 08:00 | Outpatient (CLI) | payer MEDICARE, OTHER | END 2021-05-24 23:59 | disposition home or self-care (01) | LOC: LAB.S 08:00 | PROVIDERS: ATTEND Physician Assistant Medical | DX: N39.0 Urinary tract infection, site not specified (principal) | CPT/HCPCS: 87077; 87086; 87181 ==

== ENCOUNTER 2021-09-14 08:19 | Outpatient (CLI) | payer MEDICARE, OTHER ==
[2021-09-14 14:22] LABS: BASOPHILS % (AUTO) 0.5 %; EOSINOPHILS # (AUTO) 0.2 10^3/uL (0.0-0.7); EOSINOPHILS % (AUTO) 3.3 %; HCT - HEMATOCRIT 41.5 % (42.0-52.0); HGB - HEMOGLOBIN 13.2 g/dL (14.0-18.0); LYMPHOCYTES # (AUTO) 1.7 10^3/uL (1.5-3.5); LYMPHOCYTES % (AUTO) 23.4 %; MEAN CORPUSCULAR HEMOGLOBIN 31.4 pg (27.0-31.0); MEAN CORPUSCULAR HGB CONC 31.8 g/dL (32.0-36.0); MEAN CORPUSCULAR VOLUME 98.8 fL (80.0-94.0); MEAN PLATELET VOLUME 10.3 fL (7.4-11.4); MONOCYTES # (AUTO) 0.7 10^3/uL (0.0-1.0); MONOCYTES % (AUTO) 9.4 %; NEUTROPHILS # (AUTO) 4.6 10^3/uL (1.5-6.6); NEUTROPHILS % (AUTO) 63.1 %; PLT - PLATELET COUNT 311 10^3/uL (130-450); RED CELL DISTRIBUTION WIDTH 13.5 % (12.0-15.0); WHITE BLOOD COUNT 7.3 x10^3/uL (4.8-10.8)
[2021-09-14 14:40] LABS: ALBUMIN 3.8 g/dL (3.2-5.5); ALBUMIN/GLOBULIN RATIO 1.4 (1.0-2.2); ALKALINE PHOSPHATASE 84 IU/L (42-121); ALT ALANINE AMINOTRANSFERASE 16 IU/L (10-60); AST ASPARTATE AMINOTRANSFERASE 17 IU/L (10-42); BILIRUBIN,TOTAL 1.2 mg/dL (0.2-1.0); BUN - BLOOD UREA NITROGEN 26 mg/dL (6-20); CALCIUM 9.7 mg/dL (8.5-10.3); CARBON DIOXIDE - CO2 29 mmol/L (21-32); CHLORIDE 103 mmol/L (101-111); CHOL/HDL RATIO 2.7 (<5.0); CHOLESTEROL 106 mg/dL; CREATININE 1.1 mg/dL (0.6-1.2); GFR - MDRD 63 (>89); GLUCOSE 101 mg/dL (70-100); HDL CHOLESTEROL 39 mg/dL; LDL CHOLESTEROL,CALCULATED 42 mg/dL; LDL/HDL RATIO 1.1 (<3.6); POTASSIUM 4.4 mmol/L (3.5-5.0); SODIUM 143 mmol/L (135-145); TOTAL PROTEIN 6.5 g/dL (6.7-8.2); TRIGLYCERIDES 127 mg/dL; VLDL CHOLESTEROL 25 mg/dL
== END 2021-09-14 08:20 | disposition home or self-care (01) ==
LOC: LAB.S 08:19
PROVIDERS: ATTEND Nurse Practitioner Family
DX: I10 Essential (primary) hypertension (principal); E78.5 Hyperlipidemia, unspecified
CPT/HCPCS: 36415; 80053; 80061; 83721; 84443; 85025